=== PATIENT | male | born 1950 | race Caucasian/White ===

== ENCOUNTER 2020-03-26 10:15 | Emergency (ER) | payer OTHER, MEDICARE ==
[~2020-03-26] VITALS: Ht 188 cm; Wt 204.1 kg
[2020-03-26 10:15] VITALS: BP_SYST 167
[2020-03-26 12:27] VITALS: BP_SYST 154
[2020-03-26] MEDS ORDERED: KETOROLAC TROMETHAMINE 15 MG VIAL IM ONE (13:30)
== END 2020-03-26 12:30 | disposition home or self-care (01) ==
LOC: EDBD 10:15 → SED 10:15
DX: M25.522 Pain in left elbow (principal); E11.9 Type 2 diabetes mellitus without complications; K21.9 Gastro-esophageal reflux disease without esophagitis; W18.39XA Other fall on same level, initial encounter; Y93.89 Activity, other specified; Y92.89 Other specified places as the place of occurrence of the external cause; Y99.8 Other external cause status
CPT/HCPCS: 73080; 96372; 99283; J1885